=== PATIENT | female | born 1940 | race Caucasian/White ===

== ENCOUNTER 2019-04-23 09:30 | Emergency (ER) | payer MEDICARE, BC ==
[2019-04-23] MEDS ORDERED: 0.9 % SODIUM CHLORIDE 1,000 ML IV ONE (09:36)
[2019-04-23] MEDS ORDERED: METOCLOPRAMIDE HCL 10 MG/2 ML VIAL IVP ONE (09:36)
--- NOTE | 2019-04-23 09:41 | ED Physician Documentation ---
Abdominal Pain - HISTORIAN Historian: patient - HPI Chief Complaint: Abdominal Pain Additonal Information: 78 year old female presents with c/o right upper quad abdominal pain that started late last night; early this morning. States that she has not had a bowel movement in 5 days; however, this is not unusual; she last ate some soup last night with no vomiting. She c/o nausea this morning. She denies any fever or chills; thinks she got a little sweaty this morning due to the abdominal pain. She denies any urinary symptoms. No blood in stools. Onset: hours Duration: constant Timing: still present Context: denies: out of country travel, bad food Severity: moderate Quality: pain, cramping Associated Symptoms: nausea Exacerbated by: movements Relieved by: nothing - ROS CONST: no problems GI/: constipation CVS/RESP: none EYES/ENT: none MS/SKIN/LYMPH: none NEURO/PSYCH: none - SOCIAL HX Smoking History: non-smoker Alcohol Use: none Drug Use: none - FAMILY HX Family History: none - PAST HX Past History: gall stones Ischemic Bowel Risk Factors: elderly Other History: diabetes Type 2, hyperlipidemia, hypertension Surgeries/Procedures: cholecystectomy, other (Dietz rods in back) Immunizations: UTD Home Medications: Ambulatory Orders Medication Instructions Recorded Gabapentin [Neurontin] 600 mg PO BID 04/23/19 Glimepiride [Amaryl] 1 tab PO DAILY 04/23/19 Levothyroxine Sodium 75 mcg PO DAILY 04/23/19 Simvastatin 40 mg PO HS 04/23/19 Tramadol HCl [Ultram] 1 - 2 tab PO Q4H PRN 04/23/19 amLODIPine BESYLATE [Norvasc] 5 mg PO BID 04/23/19 Allergies/Adverse Reactions: Allergies Allergy/AdvReac Type Severity Reaction Status Date / Time No Known Allergies Allergy Unverified 04/23/19 09:52 - VITAL SIGNS Vital Signs: Vital Signs Temp Pulse Resp BP Pulse Ox 97.9 F 90 20 162/76 97 04/23/19 09:30 04/23/19 09:30 04/23/19 09:30 04/23/19 09:30 04/23/19 09:30 - REVIEWED ASSESSMENTS Nursing Assessment Reviewed: Yes Vitals Reviewed: Yes Progress - Progress Progress: 10:36 Patient states that she is feeling a little better; still having some discomfort; nausea has improved. ED Results Lab/Radiology - Lab Results Lab Results: Lab Results 04/23/19 04/23/19 09:45 09:45 WBC 5.80 K/ul K/ul (4.00-12.00) RBC 3.06 M/ul L M/ul (3.90-5.20) Hgb 9.4 g/dL L g/dL (11.5-16.0) Hct 26.7 % L % (34.5-46.5) MCV 87.0 fl fl (80.0-100.0) MCH 30.6 pg pg (28.0-34.0) MCHC 35.0 g/dL g/dL (30.0-36.0) RDW 12.5 % % (11.3-14.3) Plt Count 148 K/mm3 K/mm3 (130-400) Neut % (Auto) 68.5 % % (39.0-79.0) Lymph % (Auto) 24.3 % % (16.0-50.0) Sevier % (Auto) 5.1 % % (0.0-11.0) Eos % (Auto) 1.6 % % (0.0-6.8) Baso % (Auto) 0.5 % % (0.0-1.5) Neut # (Auto) 4.0 # k/uL # k/uL (1.4-7.7) Lymph # (Auto) 1.4 # k/uL # k/uL (0.6-4.0) Sevier # (Auto) 0.3 # k/uL # k/uL (0.0-0.9) Eos # (Auto) 0.1 # k/uL # k/uL (0.0-0.6) Baso # (Auto) 0.0 # k/uL # k/uL (0.0-0.5) Sodium 142 mmol/L mmol/L (137-145) Potassium 4.2 mmol/L mmol/L (3.5-5.1) Chloride 102 mmol/L mmol/L (98-107) Carbon Dioxide 29 mmol/L mmol/L (22-30) Anion Gap 15.2 BUN 23 mg/dL H mg/dL (7-17) Creatinine 1.38 mg/dL H mg/dL (0.52-1.04) Estimated Creat Clear 47 Est GFR ( Amer) > 60 (60 - ) Est GFR (Non-Af Amer) 39 L (60 - ) Glucose 94 mg/dL mg/dL (74-106) Calcium 9.6 mg/dL mg/dL (8.4-10.2) Total Bilirubin 0.8 mg/dL mg/dL (0.2-1.3) AST 49 U/L H U/L (15-46) ALT 15 U/L U/L (4-35) Alkaline Phosphatase 87 U/L U/L (38-126) Troponin I 0.015 ng/mL ng/mL (0.012-0.034) Total Protein 8.2 g/dL g/dL (6.3-8.2) Albumin 4.7 g/dL g/dL (3.5-5.0) Lipase 49 U/L U/L (23-300) - Radiology Radiology Impressions: KUB History: No bowel movement in 5 days with abdominal pain Two supine views of the abdomen demonstrate clips from a cholecystectomy. There is not significantly increased stool in the colon. No abnormally dilated loops of large or small bowel are noted. An IVC filter is present. There are Dietz type rods of the lumbar spine. No abnormal calcifications are noted. Impression: Nonobstructive bowel gas pattern. There is not significantly increased stool in the colon. Electronically signed on Apr 23, 2019 10:13:00 AM INTENSIVE CARE MEDICINE SPECIALIST by: Sol Bagley CT ABDOMEN AND PELVIS WITH CONTRAST CLINICAL HISTORY: ORDER STATES ABDOMINAL PAIN; PT STATES SEVERE ABDOMINAL PAIN AND UNABLE TO HAVE A BM X 5 DAYS (Hx) / ITS.REASON abdominal pain Note time : 04/23/2019 10:59:27 AM User : Yesy Wise ORDER STATES ABDOMINAL PAIN; PT STATES SEVERE ABDOMINAL PAIN AND UNABLE TO HAVE A BM X 5 DAYS (DICOM Hx) (DICOM Hx) TECHNIQUE: 5 mm contiguous axial images of the abdomen and pelvis with contrast. Coronal and sagittal reconstructions. FINDINGS: Lung bases are clear. No free air. Gallbladder surgically absent with compensatory biliary dilatation. No free fluid or inflammatory change or bowel dilatation or bowel wall thickening. Typical amount of stool within the colon. IVC filter noted. Lumbar fusion noted. Impression: Unremarkable Electronically signed on Apr 23, 2019 11:17:07 AM INTENSIVE CARE MEDICINE SPECIALIST by: Patrick Ybarra - Orders Orders: ED Orders Category Date Time Status Place IV Lock 1T Care 04/23/19 09:36 Active ABDOMEN 1VIEW [RAD] Stat Exams 04/23/[address] ABD & PELVIS W/ CON Stat Exams 04/23/19 Taken CBC/PLATELET/DIFF Stat Lab 04/23/19 09:45 Completed CMP Stat Lab 04/23/19 09:45 Completed LIPASE Stat Lab 04/23/19 09:45 Completed TROPONIN I Stat Lab 04/23/19 09:45 Completed 0.9 % Sodium Chloride [Normal Saline] 1,000 ml Med 04/23/19 09:36 Discontinued IV NOW Metoclopramide HCl [Reglan] Med 04/23/19 09:36 Discontinued 10 mg IVP NOW ONE Simethicone [Gas-X] Med 04/23/19 10:19 Discontinued 80 mg PO NOW ONE Abdominal Pain Physical Exam - Physical Exam General Appearance: moderate distress EENT: eye inspection normal, ENT inspection normal, pharynx normal, JIMENEZ, dry mucous membranes NECK: normal inspection, supple RESPIRATORY: chest non-tender, breath sounds normal CVS: heart sounds normal ABDOMEN: tenderness, decreased BS SKIN: warm/dry, pallor EXTREMITIES: non-tender, normal range of motion NEURO: oriented X3, CN's nml as tested, motor nml, sensation nml, cognition normal Vital Signs: Vital Signs Temp Pulse Resp BP Pulse Ox 97.9 F 90 20 162/76 97 04/23/19 09:30 04/23/19 09:30 04/23/19 09:30 04/23/19 09:30 04/23/19 09:30 Discharge Clincal Impression: Dehydration, Abdominal pain in female Referrals: Primary Doctor,No [Primary Care Provider] - 2 Days Additional Instructions: Increase water intake Increase walking Increase Fiber in Diet Take Gas-X over the counter to help eliminate excess gas Follow up with PCP next week for follow up Patient feeling much better Condition: Good Disposition: 01 HOME, SELF-CARE Decision to Admit: NO Decision Time: 11:28
[2019-04-23 10:01] LABS: BASOPHILS % 0.5 % (0.0-1.5)
--- NOTE | 2019-04-23 10:18 | Diagnostic Imaging Report ---
PATIENT MR#: [id number] PATIENT PATIENT NAME: JESSE ALEXANDRA DATE OF : 1940 REFERRING PHYSICIAN: Kesha Zuniga EXAM DATE: 04/23/2019 ACCESSION NUMBER: [id number] EXAM DESCRIPTION: ABDOMEN 1VIEW KUB History: No bowel movement in 5 days with abdominal pain Two supine views of the abdomen demonstrate clips from a cholecystectomy. There is not significantly increased stool in the colon. No abnormally dilated loops of large or small bowel are noted. An IVC filter is present. There are Dietz type rods of the lumbar spine. No abnormal calcifications are noted. Impression: Nonobstructive bowel gas pattern. There is not significantly increased stool in the colon. Read by: Dr. Sol Bagley Transcribed by: Transcribed Date: Electronically signed by: Dr. Sol Bagley Date signed: 04/23/2019 10:17:59 AM
[2019-04-23] MEDS ORDERED: SIMETHICONE 80 MG TAB.CHEW PO ONE (10:19)
[2019-04-23 10:23] LABS: eGFR (Non-African) 39
--- NOTE | 2019-04-23 11:22 | Diagnostic Imaging Report ---
PATIENT MR#: [id number] PATIENT PATIENT NAME: JESSE ALEXANDRA DATE OF : 1940 REFERRING PHYSICIAN: Kesha Zuniga EXAM DATE: 04/23/2019 ACCESSION NUMBER: [id number] EXAM DESCRIPTION: CT ABD PELVIS W/ CON CT ABDOMEN AND PELVIS WITH CONTRAST CLINICAL HISTORY: ORDER STATES ABDOMINAL PAIN; PT STATES SEVERE ABDOMINAL PAIN AND UNABLE TO HAVE A BM X 5 DAYS (Hx) / Yesy Wise ORDER STATES ABDOMINAL PAIN; PT STATES SEVERE ABDOMINAL PAIN AND UNABLE TO HAVE A BM X 5 DAYS (DICOM Hx) (DICOM Hx) TECHNIQUE: 5 mm contiguous axial images of the abdomen and pelvis with contrast. Coronal and sagittal reconstr uctions. FINDINGS: Lung bases are clear. No free air. Gallbladder surgically absent with compensatory biliary dilatation. No free fluid or inflammatory change or bowel dilatation or bowel wall thickening. Typical amount of stool wi thin the colon. IVC filter noted. Lumbar fusion noted. Impression: Unremarkable Read by: Dr. Patrick Ybarra Transcribed by: Transcribed Date: Electronically signed by: Dr. Patrick Ybarra Date signed: 04/23/2019 11:21:59 AM
[2019-04-23 11:41] VITALS: BP 168/78
== END 2019-04-23 11:30 | disposition home or self-care (01) ==
LOC: ED 09:30
DX: E86.0 Dehydration (principal); R10.11 Right upper quadrant pain
CPT/HCPCS: 74018; 74177; 80053; 83690; 84484; 85025; 96361; 96374; 99284; J7030; Q9967; S1016